=== PATIENT | female | born 1970 | race Caucasian/White ===

== ENCOUNTER → 2023-04-18 | Outpatient (CLI) | payer BC ==
[2023-04-18 16:20] LABS: Blood Urea Nitrogen 10.1 mg/dL (9.0-27.0); Carbon Dioxide 23.4 mmol/L (21.6-31.8); Chloride 106 mmol/L (96-109); Glucose 121 mg/dL (70-110); Potassium 4.6 mmol/L (3.5-5.5); Sodium 141 mmol/L (135-145)
[2023-04-18 18:14] LABS: Basophils # (A) 0.05 X 10*3/uL (0.00-0.10); Basophils % (A) 0.8 %; Eosinophils % (A) 1.6 %; HCT 43.2 % (37.2-46.3); HGB 13.4 d/dL (12.0-15.0); Lymphocytes # (A) 2.44 X 10*3/uL (0.90-5.00); Lymphocytes % (A) 39.5 %; MCH 27.5 pg (27.0-32.0); MCV 88.7 FL (80.0-97.0); Mean Platelet Volume 10.4 FL (9.5-12.2); Monocytes % (A) 8.1 %; NRBC Per 100 WBC 0 X 10*3/uL (0.00-0.01); Neutrophils # (A) 3.07 X 10*3/uL (1.80-7.70); Neutrophils % (A) 49.8 %; Platelet Count 334 X 10*3/uL (140-440); RBC 4.87 X 10*6/uL (4.10-5.20); RDW 13.1 % (11.5-14.5); WBC 6.17 X 10*3/uL (4.50-10.00)
[2023-04-18 19:56] LABS: Appearance,Urine Cloudy (Clear); Bilirubin,Urine Negative (Negative); Blood,Urine Negative (Negative); Color,Urine Yellow (Yellow); Ketones,Urine Negative (Negative); Nitrite,Urine Negative (Negative); Specific Gravity,Urine 1.014 (1.001-1.030); Urobilinogen,Urine 0.2 E.U./DL
[2023-04-18 23:23] LABS: Bacteria,Urine 2+ (None Seen)
== END | disposition home or self-care (01) ==
LOC: LABWHC1 09:06
PROVIDERS: ATTEND Obstetrics & Gynecology Obstetrics
DX: Z01.812 Encounter for preprocedural laboratory examination (principal); D25.9 Leiomyoma of uterus, unspecified; N85.2 Hypertrophy of uterus; N92.0 Excessive and frequent menstruation with regular cycle; I49.9 Cardiac arrhythmia, unspecified
CPT/HCPCS: 36415; 80051; 81001; 82565; 82947; 84520; 85025; 93005

== ENCOUNTER 2023-04-26 10:48 | Day surgery (SDC) | payer BC ==
[~2023-04-26 10:48] MED LIST: DEXAMETHASONE SOD PHOSPHATE 4 MG/ML 1 ML VIAL IV ONE; LIDOCAINE 1% (10MG/ML) FOR IV START INTRADERMA PRN; droPERidol 5 MG/2 ML VIAL IVP ONE; fentaNYL (PF) 50 MCG/ML 2 ML AMP IV PRN
[2023-04-26 11:35] LABS: Glucose,Whole Blood 114 mg/dL (70-110)
[2023-04-26] MEDS: LACTATED RINGERS 1,000 ML IV SCH (11:36)
[2023-04-26] MEDS ORDERED: SCOPOLAMINE 1 MG/72 HR PATCH TRANSDERM ONE (11:45)
[2023-04-26] MEDS ORDERED: MIDAZOLAM 2 MG/2 ML VIAL IVP ONE (11:45)
[2023-04-26] MEDS: ONDANSETRON 4 MG/2 ML VIAL IVP ONE ×2 (11:45→15:37)
[2023-04-26] MEDS ORDERED: BUPIVACAINE (PF) 0.25% 30 ML VIAL SQ ONE ×2 (12:37→14:50)
[2023-04-26] MEDS ORDERED: LACTATED RINGERS 1,000 ML IV ONE (14:30)
[2023-04-26] MEDS ORDERED: BACITRACIN ZINC 500 UNIT/GM OINT 28.4 GM TUBE TOPICAL ONE (14:50)
[2023-04-26] MEDS ORDERED: ACETAMINOPHEN IV (For NPO) 1,000 MG in EMPTY BAG 1 BAG IVPB ONE (14:58)
[2023-04-26] MEDS ORDERED: ONDANSETRON 4 MG/2 ML VIAL IVP PRN (14:58)
[2023-04-26] MEDS ORDERED: IBUPROFEN 600 MG TAB PO PRN (14:58)
[2023-04-26] MEDS ORDERED: SIMETHICONE 80 MG CHEWABLE PO PRN (14:58)
[2023-04-26] MEDS ORDERED: Acetaminophen-Codeine 300-30mg TAB PO PRN ×2 (14:58)
[2023-04-26] MEDS ORDERED: IBUPROFEN IV 800 MG in SODIUM CHLORIDE 0.9% 250 ML IV ONE (15:00)
--- NOTE | 2023-04-26 15:06 | P.OP ---
Date of Procedure: 04/26/23 Preoperative Diagnosis: Heavy menstrual bleeding, uterine fibroids, enlarged uterus Postoperative Diagnosis: Same Procedure(s) Performed: Robotic cyst vaginal hysterectomy, bilateral salpingectomy, diagnostic cystoscopy Anesthesia: NURIAA Surgeon: Angy Bauer Fiberglass Ski Maker #1: Charan Bañuelos Estimated Blood Loss (ml): 50 IV fluids (ml): 1,100 Urine output (ml): 200 (Clear yellow) Pathology: other (Uterus bilateral fallopian tubes cervix) Condition: stable Disposition: PACU Indications for Procedure: 52-year-old female with known enlarged uterus, posterior uterine fibroid is appreciated. Patient elects definitive treatment given uterine size and heavy menstrual bleeding. Operative Findings: Enlarged globular uterus normal ovaries bilaterally Description of Procedure: Patient was taken back to the operating suite where general anesthesia was obtained without difficulty by the anesthesia department. She was prepped and draped in normal sterile fashion in the dorsal lithotomy position Paiz catheter was placed under sterile technique. A weighted speculum was placed in the posterior vaginal vault intralipids the cervix is visualized and grasped with a single-tooth tenaculum. The endocervical canal was then serially dilated. A V care to manipulate was advanced into the uterus as a means to manipulate the uterus throughout the procedure. The limb was insufflated and the cervical cap was placed snugly against the cervix all instrument were then removed from the vaginal vault. Attention was then turned the patient's abdomen where nghia roximately 3 finger breaths above the umbilicus a skin incision is made. This is an 8 mm skin incision and the Veress needles placed. CO2 insufflation was allowed to occur once the Veress needle was noted to be in the proper position with a drop of CO2 pressure with the insufflation of CO2 gas. Approximately 3- 1/2 L of gas were used to obtain pneumoperitoneum. At this time an 8 mm trocar and sleeve with a licensed real estate broker scope in place placed through the skin incision toward the pneumoperitoneum. The above-noted findings are visualized. The additional port sites are now placed at 10 cm lateral and 3 simmers inferior midline port these are 8 mm ports and placed under direct visualization. In the left upper quadrant a 12 mm trocar and sleeve is placed under direct visualization. At this time the da Katherine robot is docked in the usual fashion. In the right operative arm the monopolar scissors is placed in the left operative arm the bipolar forceps is placed. Attention was then turned to the patient's left fallopian tube which was grasped and elevated and mesosalpinx was then coagulated and transected. The mesosalpinx was transected up to the uterine ovarian ligament which was coagulated distally and proximal plane divided. Hemostasis was noted throughout. The round ligament was then visualized coagulated and transected. At this time the vesicouterine peritoneum was identified and the bladder flap was created using sharp and blunt dissection. The ascending branch the uterine artery was visualized coagulated and transected. Hemostasis was noted. Attention was then turned to the patient's right fallopian tube which was elevated and the mesosalpinx coagulated. The uterine ovarian ligament was visualized coagulated distally and proximal plane divided. The round ligament was then visualized coagulated distally approximately and divided. Hemostasis was noted. The bladder flap from the right was then created using sharp and blunt dissection. At this time a Ray-Jelani was placed into the abdomen as a means to dissect the bladder away from the operating field. A sitting branch the uterine artery from the right was visualized coagulated and transected. Multiple vessels were noted to be in the surrounding area these were coagulated and transected. At this time the only remaining attachment was a vaginal attachment therefore colpotomy incision was made and circumference of fashion. The uterus is noted to be large to be removed from the vaginal vault. The uterus was then divided into 3 pieces 2 separate pieces placed in an Endo Catch bag the uterus was delivered through the vaginal opening followed by the 2 Endo Catch bags. The pelvis then copiously irrigated and any points of bleeding were made hemostatic with the Bovie. The vaginal cuff was closed with multiple [id number] sutures of 0 Vicryl. Approximately 5 [id number] sutures were used to obtain closure. The pelvis was then irrigated and hemostasis was appreciated. At this time all instruments removed from the patient's abdomen and the da Katherine was undocked. Attention was then turned the patient's Paiz catheter which was removed without difficulty. Of note clear yellow urine was noted and the Paiz tubing. A cystoscope was then performed. The cystoscope was put was placed in the urethra toward the bladder bladder bubble was noted. A complete survey revealed normal mucosa the ureteral orifices were noted to be spilling clear yellow urine. At this time the cystoscope was removed and the Paiz catheter was replaced. The vaginal vault was cleared of any clots and debris. A small laceration on the right labia was appreciated no bleeding was noted therefore bacitracin was placed on this area. All counts were noted to be correct 2 at the end of the procedure. Patient tolerated procedure well and was taken the recovery room awake in stable condition.
[2023-04-26 15:33] LABS: Glucose,Whole Blood 204 mg/dL (70-110)
[2023-04-26] MEDS ORDERED: KETOROLAC 15 MG/ML 1 ML VIAL IVP ONE (15:37)
[2023-04-26] MEDS: SENNOSIDES-DOCUSATE SODIUM 1 EACH TAB PO SCH (22:30)
[2023-04-27 07:10] LABS: Basophils % (A) 0 %; Eosinophils # (A) 0.1 k/uL (0-0.7); Eosinophils % (A) 0 %; HCT 38.2 % (34.0-46.0); HGB 12.3 gm/dL (11.4-16.0); Lymphocytes # (A) 2.9 k/uL (1.0-4.8); Lymphocytes % (A) 22 %; MCH 28.7 pg (25.0-35.0); MCHC 32.1 g/dL (31.0-37.0); MCV 89.3 fL (80.0-100.0); Mean Platelet Volume 7.3; Monocytes # (A) 0.9 k/uL (0-1.0); Monocytes % (A) 7 %; Neutrophils # (A) 9.1 k/uL (1.3-7.7); Neutrophils % (A) 69 %; Platelet Count 270 k/uL (150-450); RBC 4.28 m/uL (3.80-5.40); RDW 13.2 % (11.5-15.5); WBC 13.2 k/uL (3.8-10.6)
[2023-04-27] MEDS: SENNOSIDES-DOCUSATE SODIUM 1 EACH TAB PO SCH (08:31)
--- NOTE | 2023-04-27 08:40 | P.DS ---
Providers Date of admission: 04/26/2023 Expected date of discharge: 04/27/23 Attending physician: Angy Bauer Primary care physician: Srinivasa Horan - Discharge Diagnosis(es) (1) Enlarged uterus Current Visit: Yes Status: Acute (2) Abnormal uterine bleeding (AUB) Current Visit: Yes Status: Acute (3) Menorrhagia Current Visit: Yes Status: Acute (4) Uterine fibroid Current Visit: Yes Status: Acute Hospital Course: 52-year-old female that presented to the hospital yesterday for scheduled robotic cyst vaginal hysterotomy with bilateral salpingectomy, diagnostic cystoscopy. Patient had a history of an enlarged uterus noted uterine fibroids and irregular menstrual bleeding, menorrhagia. Patient elected definitive treatment with ovarian conservation. Patient was taken back to the operating suite where surgery was performed without difficulty. For full details on the surgery please see the operative report. Patient's postoperative course has been uneventful. On this postoperative day #1 she is ambulating and voiding without difficulty. She is tolerating a regular diet without nausea or vomiting. She states her pain is well-controlled. She denies any vaginal bleeding or spotting. She notes positive flatus, denies dysuria. Patient Condition at Discharge: Good Plan - Discharge Summary Discharge Rx Participant: No New Discharge Prescriptions: No Action Atorvastatin Calcium 10 mg PO DAILY Unk Mounjaro 1 injection SQ WE metFORMIN HCL 500 mg PO BID lisinopriL [Zestril] 5 mg PO DAILY Omeprazole 20 mg PO DAILY PRN PRN Reason: Heartburn Discharge Medication List Atorvastatin Calcium 10 mg PO DAILY 04/20/23 [History] Omeprazole 20 mg PO DAILY PRN 04/20/23 [History] Unk Mounjaro 1 injection SQ WE 04/20/23 [History] lisinopriL [Zestril] 5 mg PO DAILY 04/20/23 [History] metFORMIN HCL 500 mg PO BID 04/20/23 [History] Follow up Appointment(s)/Referral(s): Angy Bauer DO [Doctor of Osteopathic Medicine] - 1 Week Patient Instructions/Handouts: *Sur[facility] - (Anesthesia) Discharge Instructions Outpatient Surgery, *[facility] - Scopalamine Patch Instructions, Laparoscopic Hysterectomy (DC), Laparoscopic Hysterectomy (GEN) Activity/Diet/Wound Care/Special Instructions: No tub baths or intercourse until 6-8 weeks post operatively. Qtrd-vez-dduydks ibuprofen 600 mg as needed for pain. Patient is call the office and schedule a routine postoperative visit in 2 weeks. Discharge Disposition: HOME SELF-CARE
[2023-04-27 11:29] VITALS: RESP 18
[2023-04-27] MEDS: LACTATED RINGERS 1,000 ML IV SCH (11:31)
[2023-04-27 12:27] VITALS: BP 110/79; PULSE 82; TEMP 98.5
== END 2023-04-27 12:50 | disposition home or self-care (01) ==
LOC: OR 10:48 → EDSTATUS 12:30 → 4FBP 15:14 → OR 04-27 12:50
PROVIDERS: ATTEND Obstetrics & Gynecology Obstetrics
DX: D25.1 Intramural leiomyoma of uterus (principal); N92.0 Excessive and frequent menstruation with regular cycle; N85.2 Hypertrophy of uterus; Z79.899 Other long term (current) drug therapy
CPT/HCPCS: 81025; 86900; 86901; 85025; 86850; 88307; 58552; J2250; J1100; J0690; J2405; J0131; J1885